=== PATIENT | male | born 1955 | race Caucasian/White ===

== ENCOUNTER 2022-01-20 06:13 | Inpatient (IN) ==
[2022-01-20] MEDS ORDERED: CeFAZolin Syr 3,000MG/30 ML 3,000 MG/30 ML SYRINGE IVPB ONE (06:33)
[2022-01-20] MEDS ORDERED: Ringers Solution, Lactated 1,000 ML IVC SCH (06:45)
[2022-01-20] MEDS ORDERED: *HR* FentaNYL (PF) 100 MCG/2 ML VIAL ONE ×2 (07:02→08:56)
[2022-01-20] MEDS ORDERED: *HR* Propofol 200 MG/20 ML VIAL IVP ONE (07:03)
[2022-01-20] MEDS ORDERED: Heparin 1,000 UNITS/500 mL 3,000 ML ONE (07:03)
[2022-01-20] MEDS ORDERED: Protamine Sulfate 50 MG/5 ML VIAL IVP ONE (07:03)
[2022-01-20] MEDS ORDERED: *HR* Midazolam HCl 2 MG/2 ML VIAL ONE (07:03)
[2022-01-20] MEDS ORDERED: Iopamidol - 300 100 ML INFUS..BTL ONE (07:04)
[2022-01-20] MEDS ORDERED: Iopamidol - 300 50 ML VIAL ONE (07:04)
[2022-01-20] MEDS ORDERED: *HR* Heparin 5,000 UNIT/ML VIAL ONE (07:06)
[2022-01-20] MEDS ORDERED: *HR* Succinylcholine 200 MG/10 ML VIAL IVP ONE (07:06)
[2022-01-20] MEDS ORDERED: Lidocaine -MPF 2% 5 ML VIAL ONE (07:06)
[2022-01-20] MEDS ORDERED: *HR* Rocuronium Bromide 50 MG/5 ML VIAL ONE ×3 (07:06→10:10)
[2022-01-20] MEDS ORDERED: Ondansetron 4 MG/2 ML VIAL ONE (07:06)
[2022-01-20] MEDS ORDERED: *HR* Phenylephrine 10 MG/ML VIAL ONE (07:09)
[2022-01-20] MEDS ORDERED: Heparin 1,000 UNITS/500 mL 0 ML ONE (07:11)
[2022-01-20] MEDS ORDERED: *HR* OxyCODONE Immed Rel 5 MG TABLET PO PRN ×2 (07:16→18:39)
[2022-01-20] MEDS ORDERED: Promethazine 6.25 MG in Water for inj. (sterile) 20 ML IVPB PRN (07:16)
[2022-01-20] MEDS ORDERED: Ondansetron 4 MG/2 ML VIAL IVP PRN ×2 (07:16→18:39)
[2022-01-20] MEDS ORDERED: *HR* Metoprolol 5 MG/5 ML VIAL IVP ONE (07:17)
[2022-01-20] MEDS ORDERED: ceFAZolin 1,000 MG, Sodium Chloride IRRigation 1,000 ML IR ONE (07:45)
[2022-01-20] MEDS ORDERED: Sugammadex Sodium 200 MG/2 ML VIAL IV ONE (10:36)
[2022-01-20] MEDS ORDERED: Haloperidol Lactate 5 MG/ML VIAL ONE (11:35)
[2022-01-20] MEDS: *HR* HYDROmorphone PF 0.5 MG/0.5 ML SYRINGE IVP PRN ×4 (11:45→15:29)
[2022-01-20] MEDS ORDERED: Albuterol 2.5 MG/3 ML NEBULIZER IH STA (12:34)
[2022-01-20] MEDS ORDERED: Albuterol 2.5 MG/3 ML NEBULIZER ONE (12:35)
[2022-01-20] MEDS ORDERED: *HR* Labetalol 20 MG/4 ML SYRINGE IVP ONE (13:51)
[2022-01-20] MEDS ORDERED: *HR* OxyCODONE Immed Rel 5 MG TABLET PO STA (15:27)
[2022-01-20] MEDS ORDERED: CeFAZolin Syr 2,000MG/20 ML 2,000 MG/20 ML SYRINGE IVPB ONE (16:00)
[2022-01-20] MEDS ORDERED: Albuterol 2.5 MG/3 ML NEBULIZER IH PRN (18:39)
[2022-01-20] MEDS ORDERED: 0.9 % Sodium Chloride 1,000 ML IVC SCH (18:39)
[2022-01-20] MEDS ORDERED: Acetaminophen 325 MG TABLET PO PRN (18:39)
[2022-01-20] MEDS ORDERED: Naloxone 0.4 MG/ML INJ IVP PRN (18:39)
[2022-01-20] MEDS ORDERED: methocarbamoL 500 MG TABLET PO PRN (18:39)
[2022-01-20] MEDS: CeFAZolin 2,000 MG/120 ML BAG IVPB SCH (20:23)
[2022-01-20] MEDS: *HR* Labetalol 20 MG/4 ML SYRINGE IVP PRN ×2 (20:32→23:23)
[2022-01-20] MEDS: lisinopriL 20 MG TABLET PO SCH (20:35)
[2022-01-20] MEDS: Metoprolol XL (24 HR) Succ 50 MG TAB.ER.24H PO SCH (20:35)
[2022-01-20] MEDS: *HR* HYDROcodone/Acet 5/325 mg TABLET PO PRN (20:36)
[2022-01-21 02:28] LABS: BUN/Creatinine Ratio 15 (6-26); Blood Urea Nitrogen 7 mg/dL (8-23); Calcium 8.6 mg/dL (8.6-10.3); Carbon Dioxide 25 mEq/L (23-29); Chloride 100 mEq/L (98-107); Glucose 147 mg/dL (70-105); Osmolality,Calculated 273 (280-300); Potassium 3.8 mEq/L (3.5-5.1); Sodium 131 mEq/L (136-145)
[2022-01-21 02:59] LABS: Hematocrit 48.1 % (37.5-50.1); Mean Corpuscular HGB Conc 35.3 g/dL (31.6-35.5); Mean Corpuscular Hemoglobin 33.1 pg (28.0-33.3); Mean Corpuscular Volume 93.8 fL (83.0-100.0); Mean Platelet Volume 10.5 fL (9.4-12.4); Platelet Count 165 K/mcL (140-400); Red Blood Count 5.13 M/mcL (4.19-5.50); Red Cell Distribution Width 12.3 % (11.5-14.5); White Blood Count 13.3 K/mcL (4.3-11.1)
[2022-01-21] MEDS: CeFAZolin 2,000 MG/120 ML BAG IVPB SCH (04:12)
[2022-01-21] MEDS: *HR* HYDROcodone/Acet 5/325 mg TABLET PO PRN (05:34)
[2022-01-21] MEDS ORDERED: Cholecalciferol (D-3) 1,000 UNIT (25MCG) TABLET PO SCH (09:00)
[2022-01-21] MEDS: Metoprolol XL (24 HR) Succ 50 MG TAB.ER.24H PO SCH (09:24)
[2022-01-21] MEDS: lisinopriL 20 MG TABLET PO SCH (09:24)
[2022-01-21 10:41] VITALS: BP 132/61; TEMP 98.3
[2022-01-21 16:09] VITALS: O2SAT 95
[2022-01-21 16:11] VITALS: PULSE 77
== END 2022-01-21 16:52 | disposition home or self-care (01) | DRG 269 ==
LOC: SAMDAY 06:13 → 2NNU 18:16
PROVIDERS: ADMIT Surgery Vascular Surgery; ATTEND Surgery Vascular Surgery